=== PATIENT | male | born 1990 | race Two or more races ===

== ENCOUNTER → 2016-08-13 | Outpatient (REF) | payer SELFPAY | LOC: M LAB REF 15:00 | PROVIDERS: ATTEND Otolaryngology | DX: D23.0 Other benign neoplasm of skin of lip (principal) ==

== ENCOUNTER → 2016-09-22 | Outpatient (REF) | payer BC | LOC: M LAB REF 16:45 | PROVIDERS: ATTEND Otolaryngology | DX: D23.4 Other benign neoplasm of skin of scalp and neck (principal) ==